=== PATIENT | male | born 1940 | race Caucasian/White ===

== ENCOUNTER 2017-06-19 16:21 | Inpatient (IN) | payer MEDICARE, OTHER ==
[~2017-06-19] VITALS: Ht 177.8 cm; Wt 64.8 kg
[~2017-06-19 16:21] MED LIST: ACET500T71 PO; ALBU8.5H5 INH; AMLO10TA2 PO; ASPI-496 PO; B12 PO; BUDE10.2 PO; CHOL100014 PO; CLOP75TA PO; CYAN100072 PO; FINA5TAB4 PO; FURO20TA3 PO; ISOS30TA8 PO; KETO15CR2 TD; LANS15CA5 PO; METO25TA91 PO; MULT-516 PO; NITR0.4T28 SL; OFLO5DRO7 EACHEYE; SIMV40TA3 PO; TIOT18CA INH; TRAM50TA2 PO; UREA198C TD; [UNRECOGNIZED DRUG - CODE] EACHEYE
[2017-06-19] MEDS ORDERED: ONDANSETRON 2MG/ML, 2ML ONE ×2 (16:51→21:17)
[2017-06-19] MEDS ORDERED: FAMOTIDINE 20 MG/2 ML ONE (16:51)
[2017-06-19] MEDS ORDERED: SODIUM CHLORIDE FLUSH 10ML SYR IVF ONE (17:00)
[2017-06-19] MEDS ORDERED: FAMOTIDINE 20 MG/2 ML IVP ONE (17:00)
[2017-06-19] MEDS ORDERED: SODIUM CHLORIDE 0.9% 1,000ML IVBOLUS ONE (17:00)
[2017-06-19] MEDS ORDERED: ONDANSETRON 2MG/ML, 2ML IVPush ONE (17:00)
[2017-06-19 17:03] LABS: HEMATOCRIT 44.2 % (39.2-51.8); HEMOGLOBIN 14.5 g/dL (13.7-18.0); WHITE BLOOD COUNT 10.4 x10^3/uL (3.4-10)
[2017-06-19 17:21] LABS: ASPARTATE AMINO TRANSFERASE 17 U/L (15-37); BLOOD UREA NITROGEN 10 mg/dL (7-18)
[2017-06-19 17:22] LABS: IS PT STATUS REG ER OR PRE ER? YES
[2017-06-19] MEDS ORDERED: GUAI200T3 PO (19:24)
[2017-06-19] MEDS ORDERED: CLOP75TA52 PO (19:24)
[2017-06-19] MEDS ORDERED: ATOR10TA PO (19:24)
[2017-06-19] MEDS ORDERED: BUPR75TA6 PO (19:24)
[2017-06-19] MEDS ORDERED: RANO500T2 PO (19:24)
[2017-06-19] MEDS ORDERED: hydrALAzine 20 MG/ML, 1ML IVPush PRN (21:00)
[2017-06-19] MEDS ORDERED: POLYETHYLENE GLYCOL 17 GM PACKET PO PRN (21:00)
[2017-06-19] MEDS ORDERED: BISACODYL 10 MG SUPP PR PRN (21:00)
[2017-06-19] MEDS: ACETAMINOPHEN 500 MG TABLET PO SCH (21:00)
[2017-06-19] MEDS ORDERED: ONDANSETRON 2MG/ML, 2ML IVPush PRN (21:00)
[2017-06-19] MEDS ORDERED: HEPARIN 5,000 UNITS/ML, 1ML ONE (21:17)
[2017-06-19] MEDS: HEPARIN 5,000 UNITS/ML, 1ML SQ SCH (21:23)
[2017-06-19] MEDS: SODIUM CHLORIDE 0.9% 1,000 ML IV SCH (22:07)
[2017-06-19] MEDS: RANOLAZINE 500 MG TAB.ER.12H PO SCH (22:37)
[2017-06-19] MEDS: ISOSORBIDE MONONITRATE ER 30 MG TABLET PO SCH (22:37)
[2017-06-19] MEDS: ATORVASTATIN 10 MG TABLET PO SCH (22:37)
[2017-06-19 22:58] VITALS: BP 128/88
[2017-06-19] MEDS ORDERED: ALBUTEROL SULFATE 2.5 MG/3 ML NPPB PRN (23:00)
[2017-06-20 02:06] VITALS: BP 127/69
[2017-06-20 05:10] LABS: HEMOGLOBIN 12.5 g/dL (13.7-18.0); WHITE BLOOD COUNT 7.3 x10^3/uL (3.4-10)
[2017-06-20 05:17] LABS: ASPARTATE AMINO TRANSFERASE 12 U/L (15-37); BLOOD UREA NITROGEN 9 mg/dL (7-18)
[2017-06-20] MEDS: HEPARIN 5,000 UNITS/ML, 1ML SQ SCH ×3 (05:38→21:46)
[2017-06-20 06:13] LABS: PATH.CAST-FLAG NOT PRESENT; SPERM-FLAG NOT PRESENT; SRC-FLAG NOT PRESENT; XTAL-FLAG NOT PRESENT; YLC-FLAG NOT PRESENT
[2017-06-20 06:58] VITALS: BP 125/64
[2017-06-20] MEDS: IPRATROPIUM 0.5 MG/2.5 ML INHA NPPB SCH ×2 (07:55→11:00)
[2017-06-20] MEDS: RANOLAZINE 500 MG TAB.ER.12H PO SCH ×2 (08:48→21:46)
[2017-06-20] MEDS: CHOLECALCIFEROL 1,000 UNIT TABLET PO SCH (08:48)
[2017-06-20] MEDS: MULTIVITAMIN 1 TABLET PO SCH (08:48)
[2017-06-20] MEDS: FINASTERIDE 5 MG TABLET PO SCH (08:48)
[2017-06-20] MEDS: SENNA/DOCUSATE TABLET PO SCH (08:48)
[2017-06-20] MEDS: BUPROPION 75 MG TABLET PO SCH (08:48)
[2017-06-20] MEDS: METOPROLOL SUCCINATE 25 MG TAB.ER.24H PO SCH (08:48)
[2017-06-20] MEDS: CLOPIDOGREL 75 MG TABLET PO SCH (08:48)
[2017-06-20] MEDS: ISOSORBIDE MONONITRATE ER 30 MG TABLET PO SCH ×2 (08:49→21:46)
[2017-06-20] MEDS: FUROSEMIDE 20 MG TABLET PO SCH (08:49)
[2017-06-20] MEDS: PANTOPROZOLE 40MG TABLET PO SCH (08:49)
[2017-06-20] MEDS: SODIUM CHLORIDE 0.9% 1,000 ML IV SCH (08:50)
[2017-06-20] MEDS: ACETAMINOPHEN 500 MG TABLET PO SCH ×3 (08:58→19:48)
[2017-06-20] MEDS: FLUTICASONE/VILANTEROL 200-25MCG/INH INH SCH (10:55)
[2017-06-20 15:00] VITALS: BP 132/67
[2017-06-20] MEDS: ALBUTEROL/IPRATROPIUM 2.5MG/0.5MG, 3 ML NPPB SCH ×2 (15:20→20:20)
[2017-06-20] MEDS: POLYETHYLENE GLYCOL 17 GM PACKET PO SCH (19:30)
[2017-06-20 21:38] VITALS: BP 145/63
[2017-06-20] MEDS: ATORVASTATIN 10 MG TABLET PO SCH (21:46)
[2017-06-21 01:08] VITALS: BP 139/66
[2017-06-21] MEDS: HEPARIN 5,000 UNITS/ML, 1ML SQ SCH ×3 (05:23→22:34)
[2017-06-21 06:10] LABS: BLOOD UREA NITROGEN 7 mg/dL (7-18)
[2017-06-21] MEDS: ALBUTEROL/IPRATROPIUM 2.5MG/0.5MG, 3 ML NPPB SCH ×3 (06:43→21:30)
[2017-06-21 07:15] VITALS: BP 135/72
[2017-06-21] MEDS: PANTOPROZOLE 40MG TABLET PO SCH (08:39)
[2017-06-21] MEDS: CHOLECALCIFEROL 1,000 UNIT TABLET PO SCH (08:40)
[2017-06-21] MEDS: METOPROLOL SUCCINATE 25 MG TAB.ER.24H PO SCH (08:40)
[2017-06-21] MEDS: FUROSEMIDE 20 MG TABLET PO SCH (08:41)
[2017-06-21] MEDS: CLOPIDOGREL 75 MG TABLET PO SCH (08:41)
[2017-06-21] MEDS: ISOSORBIDE MONONITRATE ER 30 MG TABLET PO SCH ×2 (08:41→22:35)
[2017-06-21] MEDS: FINASTERIDE 5 MG TABLET PO SCH (08:41)
[2017-06-21] MEDS: ACETAMINOPHEN 500 MG TABLET PO SCH ×3 (08:41→21:00)
[2017-06-21] MEDS: MULTIVITAMIN 1 TABLET PO SCH (08:41)
[2017-06-21] MEDS: SENNA/DOCUSATE TABLET PO SCH (08:41)
[2017-06-21] MEDS: BUPROPION 75 MG TABLET PO SCH (08:41)
[2017-06-21] MEDS: RANOLAZINE 500 MG TAB.ER.12H PO SCH ×2 (08:41→22:34)
[2017-06-21] MEDS: POLYETHYLENE GLYCOL 17 GM PACKET PO SCH (08:42)
[2017-06-21] MEDS: FLUTICASONE/VILANTEROL 200-25MCG/INH INH SCH (08:42)
[2017-06-21 12:34] VITALS: BP 109/66
[2017-06-21 19:46] VITALS: BP 160/65
[2017-06-21] MEDS: ATORVASTATIN 10 MG TABLET PO SCH (22:34)
[2017-06-22 02:00] VITALS: BP 147/56
[2017-06-22] MEDS: HEPARIN 5,000 UNITS/ML, 1ML SQ SCH ×2 (05:38→13:00)
[2017-06-22 07:17] VITALS: BP 142/74
[2017-06-22] MEDS: ALBUTEROL/IPRATROPIUM 2.5MG/0.5MG, 3 ML NPPB SCH (08:14)
[2017-06-22] MEDS: FLUTICASONE/VILANTEROL 200-25MCG/INH INH SCH (08:28)
[2017-06-22] MEDS: BUPROPION 75 MG TABLET PO SCH (08:28)
[2017-06-22] MEDS: MULTIVITAMIN 1 TABLET PO SCH (08:28)
[2017-06-22] MEDS: RANOLAZINE 500 MG TAB.ER.12H PO SCH (08:28)
[2017-06-22] MEDS: CLOPIDOGREL 75 MG TABLET PO SCH (08:28)
[2017-06-22] MEDS: FINASTERIDE 5 MG TABLET PO SCH (08:28)
[2017-06-22] MEDS: POLYETHYLENE GLYCOL 17 GM PACKET PO SCH (08:29)
[2017-06-22] MEDS: PANTOPROZOLE 40MG TABLET PO SCH (08:29)
[2017-06-22] MEDS: ISOSORBIDE MONONITRATE ER 30 MG TABLET PO SCH (08:29)
[2017-06-22] MEDS: METOPROLOL SUCCINATE 25 MG TAB.ER.24H PO SCH (08:29)
[2017-06-22] MEDS: FUROSEMIDE 20 MG TABLET PO SCH (08:29)
[2017-06-22] MEDS: CHOLECALCIFEROL 1,000 UNIT TABLET PO SCH (08:29)
[2017-06-22] MEDS: SENNA/DOCUSATE TABLET PO SCH (08:29)
[2017-06-22] MEDS: ACETAMINOPHEN 500 MG TABLET PO SCH (08:48)
[2017-06-22 12:12] VITALS: BP 118/58
[2017-06-22] MEDS ORDERED: POLY17PO5 PO (12:56)
[2017-06-22] MEDS ORDERED: CEFDINIR 300 MG CAPSULE PO SCH ×2 (13:00→13:08)
[2017-06-22] MEDS ORDERED: CIPR500T87 PO (13:16)
[2017-06-22] MEDS ORDERED: CIPROFLOXACIN 500 MG TABLET PO SCH (21:00)
== END 2017-06-22 14:52 | disposition home or self-care (01) | DRG 690 ==
LOC: ED 19:36 → EDIP 19:42 → ED 20:28 → 4EST 21:49 → DCLOUNGE 06-22 14:09
PROVIDERS: ADMIT Internal Medicine; ATTEND Internal Medicine
DX: N39.0 Urinary tract infection, site not specified (principal); J96.10 Chronic respiratory failure, unspecified whether with hypoxia or hypercapnia; I11.0 Hypertensive heart disease with heart failure; E87.1 Hypo-osmolality and hyponatremia; I50.32 Chronic diastolic (congestive) heart failure; I95.1 Orthostatic hypotension; K59.00 Constipation, unspecified; J44.9 Chronic obstructive pulmonary disease, unspecified; D75.89 Other specified diseases of blood and blood-forming organs; G56.00 Carpal tunnel syndrome, unspecified upper limb; K21.9 Gastro-esophageal reflux disease without esophagitis; I25.10 Atherosclerotic heart disease of native coronary artery without angina pectoris; I71.4 Abdominal aortic aneurysm, without rupture; Z66 Do not resuscitate; I73.9 Peripheral vascular disease, unspecified; M48.00 Spinal stenosis, site unspecified; M85.80 Other specified disorders of bone density and structure, unspecified site; I25.2 Old myocardial infarction; Z80.3 Family history of malignant neoplasm of breast; Z82.49 Family history of ischemic heart disease and other diseases of the circulatory system; Z86.73 Personal history of transient ischemic attack (TIA), and cerebral infarction without residual deficits; Z86.79 Personal history of other diseases of the circulatory system; Z87.891 Personal history of nicotine dependence; Z95.1 Presence of aortocoronary bypass graft; Z81.8 Family history of other mental and behavioral disorders; Z88.6 Allergy status to analgesic agent; Z88.1 Allergy status to other antibiotic agents; Z88.0 Allergy status to penicillin; Z88.8 Allergy status to other drugs, medicaments and biological substances
CPT/HCPCS: 36415; 71010; 74000; 80048; 80053; 81001; 83690; 83735; 83880; 84484; 85025; 85610; 85730; 87086; 87186; 93005; 94640; 96361; 96374; 96375; 96376; J1644; J2405; J7620; J7644; J7030; S0028

== ENCOUNTER 2018-01-08 19:56 | Emergency (ER) | payer MEDICARE, OTHER ==
[~2018-01-08] VITALS: Ht 172.7 cm; Wt 70.0 kg
[~2018-01-08 19:56] MED LIST changes: +ATOR10TA PO; +BUPR75TA6 PO; +CIPR500T87 PO; +CLOP75TA52 PO; +GUAI200T3 PO; +POLY17PO5 PO; +RANO500T2 PO
[2018-01-08 20:38] LABS: BASOPHILS # (AUTO) 0.06 x10^3/uL (0-0.1); BASOPHILS % (AUTO) 1 % (0-1); EOSINOPHILS # (AUTO) 0.39 x10^3/uL (0-0.4); EOSINOPHILS % (AUTO) 5 % (1-7); LYMPHOCYTES # (AUTO) 2.05 x10^3/uL (1-3.4); LYMPHOCYTES % (AUTO) 27 % (22-44); MD NO; MEAN CORPUSCULAR HEMOGLOBIN 29.8 pg (27.5-34.5); MEAN CORPUSCULAR HGB CONC 33.5 g/dL (33.2-36.2); MEAN CORPUSCULAR VOLUME 88.9 fL (81-97); MONOCYTES # (AUTO) 0.52 x10^3/uL (0.2-0.8); MONOCYTES % (AUTO) 7 % (2-9); NEUTROPHILS # (AUTO) 4.53 x10^3/uL (1.8-6.8); NEUTROPHILS % (AUTO) 60 % (42-75); PLATELET COUNT 359 x10^3/uL (130-400); RED BLOOD COUNT 4.82 x10^6/uL (4.38-5.82); RED CELL DISTRIBUTION WIDTH 14.7 % (9.4-14.8)
[2018-01-08 20:47] LABS: ALBUMIN 3.8 g/dL (3.4-5.0); ANION GAP 10 mmol/L (5-15); CALCIUM 8.6 mg/dL (8.5-10.1); CHLORIDE 100 mmol/L (98-107); CREATININE 1.03 mg/dL (0.7-1.3)
[2018-01-08 20:50] LABS: TROPONIN I < 0.015 ng/mL (0.000-0.045)
[2018-01-08 21:35] VITALS: BP 143/67
== END 2018-01-08 22:33 | disposition left against medical advice (07) ==
LOC: ED 22:27
DX: R07.89 Other chest pain (principal); E87.6 Hypokalemia; F10.10 Alcohol abuse, uncomplicated; K21.9 Gastro-esophageal reflux disease without esophagitis; I10 Essential (primary) hypertension; Z86.73 Personal history of transient ischemic attack (TIA), and cerebral infarction without residual deficits; I25.2 Old myocardial infarction; Z79.899 Other long term (current) drug therapy
CPT/HCPCS: 36415; 71045; 80048; 80307; 82040; 84484; 85025; 93005; 99285

== ENCOUNTER 2018-05-23 04:29 | Inpatient (IN) | payer MEDICARE, OTHER ==
[~2018-05-23] VITALS: Ht 172.7 cm; Wt 72.0 kg
[2018-05-23] MEDS ORDERED: CYAN100028 PO (04:55)
[2018-05-23] MEDS ORDERED: ASPI-496 PO (04:55)
[2018-05-23] MEDS ORDERED: ALEN70TA5 PO (04:55)
[2018-05-23] MEDS ORDERED: BUPR150T13 PO (04:55)
[2018-05-23] MEDS ORDERED: LANS30CA PO (04:55)
[2018-05-23] MEDS ORDERED: SODIUM CHLORIDE FLUSH 10ML SYR IVF ONE (05:00)
[2018-05-23 05:03] LABS: BASOPHILS # (AUTO) 0.04 x10^3/uL (0-0.1); BASOPHILS % (AUTO) 0 % (0-1); EOSINOPHILS # (AUTO) 0.24 x10^3/uL (0-0.4); EOSINOPHILS % (AUTO) 3 % (1-7); LYMPHOCYTES # (AUTO) 0.72 x10^3/uL (1-3.4); LYMPHOCYTES % (AUTO) 8 % (22-44); MD NO; MEAN CORPUSCULAR HGB CONC 33.1 g/dL (33.2-36.2); MEAN CORPUSCULAR VOLUME 90.4 fL (81-97); MEAN PLATELET VOLUME 8.1 fL (7.4-10.4); MONOCYTES # (AUTO) 0.54 x10^3/uL (0.2-0.8); MONOCYTES % (AUTO) 6 % (2-9); NEUTROPHILS # (AUTO) 8.14 x10^3/uL (1.8-6.8); NEUTROPHILS % (AUTO) 84 % (42-75); PLATELET COUNT 320 x10^3/uL (130-400); RED CELL DISTRIBUTION WIDTH 15.6 % (9.4-14.8)
[2018-05-23] MEDS ORDERED: RANO500T2 PO (05:03)
[2018-05-23] MEDS ORDERED: METO25TA91 PO (05:03)
[2018-05-23 05:16] LABS: ALBUMIN 2.9 g/dL (3.4-5.0); ANION GAP 12 mmol/L (5-15); CALCIUM 8.3 mg/dL (8.5-10.1); CHLORIDE 109 mmol/L (98-107); CREATININE 0.88 mg/dL (0.7-1.3)
[2018-05-23 05:22] LABS: TROPONIN I 0.674 ng/mL (0.000-0.045)
[2018-05-23] MEDS ORDERED: ASPIRIN 81 MG TABLET CHEW PO ONE (05:30)
[2018-05-23] MEDS ORDERED: LEVOFLOXACIN/PMX 750MG/150ML 150 ML ONE (06:21)
[2018-05-23] MEDS ORDERED: ASPIRIN 81 MG TABLET CHEW ONE (06:22)
[2018-05-23] MEDS ORDERED: LEVOFLOXACIN/PMX 750MG/150ML 150 ML IVPB ONE (06:30)
[2018-05-23] MEDS ORDERED: SODIUM CHLORIDE FLUSH 10ML SYR IVF PRN (07:30)
[2018-05-23 12:05] VITALS: BP 116/70
[2018-05-23 12:35] VITALS: BP 121/70
[2018-05-23] MEDS: IPRATROPIUM 0.5 MG/2.5 ML INHA NPPB SCH ×2 (13:00→19:00)
[2018-05-23] MEDS ORDERED: CLOPIDOGREL 75 MG TABLET PO ONE (14:30)
[2018-05-23] MEDS: SIMETHICONE 125 MG CHEW TAB PO SCH ×3 (15:05→21:25)
[2018-05-23] MEDS: ACETAMINOPHEN 500 MG TABLET PO SCH ×2 (15:05→21:00)
[2018-05-23] MEDS: POLYETHYLENE GLYCOL 17 GM PACKET PO SCH ×2 (15:06→21:27)
[2018-05-23] MEDS: OMEPRAZOLE 20 MG CAPSULE.DR PO SCH (15:06)
[2018-05-23 19:26] VITALS: BP 119/61
[2018-05-23 21:21] VITALS: BP 123/64
[2018-05-23] MEDS: METOPROLOL SUCCINATE 25 MG TAB.ER.24H PO SCH (21:25)
[2018-05-23] MEDS: ISOSORBIDE MONONITRATE ER 30 MG TABLET PO SCH (21:25)
[2018-05-23] MEDS: BUPROPION 75 MG TABLET PO SCH (21:26)
[2018-05-23] MEDS: RANOLAZINE 500 MG TAB.ER.12H PO SCH (21:26)
[2018-05-23] MEDS: ATORVASTATIN 10 MG TABLET PO SCH (21:26)
[2018-05-24] VITALS (10 sets, daily range): BP systolic 89–136; BP diastolic 45–62
[2018-05-24] MEDS: IPRATROPIUM 0.5 MG/2.5 ML INHA NPPB SCH ×4 (01:00→21:14)
[2018-05-24] MEDS: METOPROLOL SUCCINATE 25 MG TAB.ER.24H PO SCH ×2 (07:59→21:58)
[2018-05-24] MEDS: RANOLAZINE 500 MG TAB.ER.12H PO SCH ×2 (07:59→21:57)
[2018-05-24] MEDS: ISOSORBIDE MONONITRATE ER 30 MG TABLET PO SCH ×2 (08:00→22:54)
[2018-05-24] MEDS: SIMETHICONE 125 MG CHEW TAB PO SCH ×4 (08:00→21:58)
[2018-05-24] MEDS: BUPROPION 75 MG TABLET PO SCH ×2 (08:00→21:58)
[2018-05-24] MEDS: OMEPRAZOLE 20 MG CAPSULE.DR PO SCH ×2 (08:00→17:16)
[2018-05-24] MEDS: MULTIVITAMIN 1 TABLET PO SCH (08:00)
[2018-05-24] MEDS: CHOLECALCIFEROL 1,000 UNIT TABLET PO SCH (08:00)
[2018-05-24] MEDS: ACETAMINOPHEN 500 MG TABLET PO SCH ×4 (08:00→22:08)
[2018-05-24] MEDS: POLYETHYLENE GLYCOL 17 GM PACKET PO SCH ×2 (08:01→21:59)
[2018-05-24] MEDS: CYANOCOBALAMIN 1,000 MCG TABLET PO SCH (08:01)
[2018-05-24] MEDS: FINASTERIDE 5 MG TABLET PO SCH (08:01)
[2018-05-24] MEDS ORDERED: POLYETHYLENE GLYCOL 17 GM PACKET PO SCH (09:00)
[2018-05-24] MEDS ORDERED: FLUTICASONE/VILANTEROL 200-25MCG/INH INH PRN (09:00)
[2018-05-24] MEDS: CLOPIDOGREL 75 MG TABLET PO SCH (12:24)
[2018-05-24] MEDS: ATORVASTATIN 10 MG TABLET PO SCH (21:58)
[2018-05-24] MEDS: ALBUTEROL SULFATE 2.5 MG/3 ML NPPB PRN (23:10)
[2018-05-25 02:41] VITALS: BP 105/51
[2018-05-25] MEDS: IPRATROPIUM 0.5 MG/2.5 ML INHA NPPB SCH ×4 (03:16→15:15)
[2018-05-25] MEDS: ALBUTEROL SULFATE 2.5 MG/3 ML NPPB PRN ×2 (05:32→12:40)
[2018-05-25] MEDS: ASPIRIN 81 MG TABLET EC PO SCH (05:51)
[2018-05-25 07:26] VITALS: BP 105/55
[2018-05-25] MEDS: BUPROPION 75 MG TABLET PO SCH ×2 (07:57→21:40)
[2018-05-25] MEDS: SIMETHICONE 125 MG CHEW TAB PO SCH ×4 (07:57→21:48)
[2018-05-25] MEDS: POLYETHYLENE GLYCOL 17 GM PACKET PO SCH ×2 (07:57→21:48)
[2018-05-25] MEDS: METOPROLOL SUCCINATE 25 MG TAB.ER.24H PO SCH ×2 (07:57→21:41)
[2018-05-25] MEDS: MULTIVITAMIN 1 TABLET PO SCH (07:57)
[2018-05-25] MEDS: CYANOCOBALAMIN 1,000 MCG TABLET PO SCH (07:57)
[2018-05-25] MEDS: CHOLECALCIFEROL 1,000 UNIT TABLET PO SCH (07:57)
[2018-05-25] MEDS: OMEPRAZOLE 20 MG CAPSULE.DR PO SCH ×2 (07:57→16:46)
[2018-05-25] MEDS: CLOPIDOGREL 75 MG TABLET PO SCH (07:57)
[2018-05-25] MEDS: RANOLAZINE 500 MG TAB.ER.12H PO SCH ×2 (07:58→21:40)
[2018-05-25] MEDS: FINASTERIDE 5 MG TABLET PO SCH (07:58)
[2018-05-25] MEDS: ISOSORBIDE MONONITRATE ER 30 MG TABLET PO SCH ×2 (07:58→21:43)
[2018-05-25] MEDS ORDERED: ALBUTEROL/IPRATROPIUM 2.5MG/0.5MG, 3 ML ONE ×2 (12:38→20:48)
[2018-05-25 13:23] VITALS: BP 116/62
[2018-05-25] MEDS: ACETAMINOPHEN 500 MG TABLET PO SCH ×2 (16:00→21:40)
[2018-05-25 20:49] VITALS: BP 147/73
[2018-05-25] MEDS: ATORVASTATIN 10 MG TABLET PO SCH (21:41)
[2018-05-26 01:02] VITALS: BP 113/64
[2018-05-26] MEDS: IPRATROPIUM 0.5 MG/2.5 ML INHA NPPB SCH ×2 (03:00→08:40)
[2018-05-26] MEDS: ASPIRIN 81 MG TABLET EC PO SCH (05:48)
[2018-05-26] MEDS: ALBUTEROL SULFATE 2.5 MG/3 ML NPPB PRN (05:51)
[2018-05-26 08:18] VITALS: BP 125/60
[2018-05-26] MEDS: METOPROLOL SUCCINATE 25 MG TAB.ER.24H PO SCH ×2 (08:22→20:30)
[2018-05-26] MEDS: OMEPRAZOLE 20 MG CAPSULE.DR PO SCH ×2 (08:22→15:28)
[2018-05-26] MEDS: CHOLECALCIFEROL 1,000 UNIT TABLET PO SCH (08:22)
[2018-05-26] MEDS: RANOLAZINE 500 MG TAB.ER.12H PO SCH ×2 (08:22→20:30)
[2018-05-26] MEDS: MULTIVITAMIN 1 TABLET PO SCH (08:22)
[2018-05-26] MEDS: CYANOCOBALAMIN 1,000 MCG TABLET PO SCH (08:22)
[2018-05-26] MEDS: SIMETHICONE 125 MG CHEW TAB PO SCH ×4 (08:23→22:47)
[2018-05-26] MEDS: ACETAMINOPHEN 500 MG TABLET PO SCH ×3 (08:23→20:30)
[2018-05-26] MEDS: CLOPIDOGREL 75 MG TABLET PO SCH (08:23)
[2018-05-26] MEDS: FINASTERIDE 5 MG TABLET PO SCH (08:47)
[2018-05-26] MEDS: POLYETHYLENE GLYCOL 17 GM PACKET PO SCH ×2 (08:47→20:30)
[2018-05-26] MEDS: BUPROPION 75 MG TABLET PO SCH ×2 (08:48→20:37)
[2018-05-26] MEDS: ISOSORBIDE MONONITRATE ER 30 MG TABLET PO SCH ×2 (08:49→20:29)
[2018-05-26] MEDS: ALBUTEROL SULFATE 2.5 MG/3 ML NPPB SCH ×4 (14:00→22:54)
[2018-05-26] MEDS ORDERED: GUAIFENESIN 200 MG TABLET ONE (15:34)
[2018-05-26] MEDS: GUAIFENESIN 200 MG TABLET PO SCH ×2 (15:37→20:30)
[2018-05-26] MEDS: FLUTICASONE/VILANTEROL 200-25MCG/INH INH SCH (16:07)
[2018-05-26 18:53] VITALS: BP 119/69
[2018-05-26] MEDS: ATORVASTATIN 10 MG TABLET PO SCH (20:30)
[2018-05-27 01:53] VITALS: BP 146/67
[2018-05-27] MEDS: ASPIRIN 81 MG TABLET EC PO SCH (05:26)
[2018-05-27] MEDS: ALBUTEROL SULFATE 2.5 MG/3 ML NPPB SCH ×5 (06:56→21:58)
[2018-05-27] MEDS: BUPROPION 75 MG TABLET PO SCH ×2 (08:34→21:52)
[2018-05-27] MEDS: ACETAMINOPHEN 500 MG TABLET PO SCH ×3 (08:34→21:52)
[2018-05-27] MEDS: CYANOCOBALAMIN 1,000 MCG TABLET PO SCH (08:35)
[2018-05-27] MEDS: ISOSORBIDE MONONITRATE ER 30 MG TABLET PO SCH ×2 (08:35→21:52)
[2018-05-27] MEDS: SIMETHICONE 125 MG CHEW TAB PO SCH ×4 (08:35→21:52)
[2018-05-27] MEDS: OMEPRAZOLE 20 MG CAPSULE.DR PO SCH ×2 (08:35→15:16)
[2018-05-27] MEDS: POLYETHYLENE GLYCOL 17 GM PACKET PO SCH ×2 (08:36→21:52)
[2018-05-27] MEDS: CLOPIDOGREL 75 MG TABLET PO SCH (08:36)
[2018-05-27] MEDS: FINASTERIDE 5 MG TABLET PO SCH (08:36)
[2018-05-27] MEDS: CHOLECALCIFEROL 1,000 UNIT TABLET PO SCH (08:36)
[2018-05-27] MEDS: METOPROLOL SUCCINATE 25 MG TAB.ER.24H PO SCH ×2 (08:36→21:52)
[2018-05-27] MEDS: MULTIVITAMIN 1 TABLET PO SCH (08:36)
[2018-05-27 08:45] VITALS: BP 135/50
[2018-05-27] MEDS: FLUTICASONE/VILANTEROL 200-25MCG/INH INH SCH (09:41)
[2018-05-27] MEDS: RANOLAZINE 500 MG TAB.ER.12H PO SCH ×2 (09:41→21:52)
[2018-05-27 10:07] LABS: BASOPHILS # (AUTO) 0.02 x10^3/uL (0-0.1); BASOPHILS % (AUTO) 0 % (0-1); EOSINOPHILS # (AUTO) 0.19 x10^3/uL (0-0.4); EOSINOPHILS % (AUTO) 3 % (1-7); LYMPHOCYTES # (AUTO) 0.55 x10^3/uL (1-3.4); LYMPHOCYTES % (AUTO) 8 % (22-44); MD NO; MEAN CORPUSCULAR HEMOGLOBIN 30.3 pg (27.5-34.5); MEAN CORPUSCULAR HGB CONC 33.4 g/dL (33.2-36.2); MEAN CORPUSCULAR VOLUME 90.9 fL (81-97); MEAN PLATELET VOLUME 8.2 fL (7.4-10.4); MONOCYTES # (AUTO) 0.57 x10^3/uL (0.2-0.8); MONOCYTES % (AUTO) 8 % (2-9); NEUTROPHILS # (AUTO) 5.82 x10^3/uL (1.8-6.8); NEUTROPHILS % (AUTO) 81 % (42-75); PLATELET COUNT 401 x10^3/uL (130-400); RED BLOOD COUNT 3.17 x10^6/uL (4.38-5.82); RED CELL DISTRIBUTION WIDTH 15.2 % (9.4-14.8)
[2018-05-27 12:53] VITALS: BP 123/55
[2018-05-27 17:24] LABS: % IRON SATURATION 8 % (20-55); IRON LEVEL 19 mcg/dL (65-175); TOTAL IRON BINDING CAPACITY 246 mcg/dL (250-450)
[2018-05-27 20:29] VITALS: BP 115/67
[2018-05-27] MEDS: GUAIFENESIN 200 MG TABLET PO SCH (21:52)
[2018-05-27] MEDS: ATORVASTATIN 10 MG TABLET PO SCH (21:52)
[2018-05-28 02:05] VITALS: BP 106/62
[2018-05-28] MEDS: ASPIRIN 81 MG TABLET EC PO SCH (05:42)
[2018-05-28] MEDS: ALBUTEROL SULFATE 2.5 MG/3 ML NPPB SCH ×3 (06:45→14:00)
[2018-05-28 07:35] VITALS: BP 121/64
[2018-05-28] MEDS: OMEPRAZOLE 20 MG CAPSULE.DR PO SCH (09:11)
[2018-05-28] MEDS: FINASTERIDE 5 MG TABLET PO SCH (09:11)
[2018-05-28] MEDS: GUAIFENESIN 200 MG TABLET PO SCH (09:11)
[2018-05-28] MEDS: CYANOCOBALAMIN 1,000 MCG TABLET PO SCH (09:11)
[2018-05-28] MEDS: SIMETHICONE 125 MG CHEW TAB PO SCH ×2 (09:11→13:27)
[2018-05-28] MEDS: MULTIVITAMIN 1 TABLET PO SCH (09:11)
[2018-05-28] MEDS: RANOLAZINE 500 MG TAB.ER.12H PO SCH (09:11)
[2018-05-28] MEDS: BUPROPION 75 MG TABLET PO SCH (09:12)
[2018-05-28] MEDS: METOPROLOL SUCCINATE 25 MG TAB.ER.24H PO SCH (09:12)
[2018-05-28] MEDS: ACETAMINOPHEN 500 MG TABLET PO SCH (09:12)
[2018-05-28] MEDS: CLOPIDOGREL 75 MG TABLET PO SCH (09:12)
[2018-05-28] MEDS: ISOSORBIDE MONONITRATE ER 30 MG TABLET PO SCH (09:12)
[2018-05-28] MEDS: CHOLECALCIFEROL 1,000 UNIT TABLET PO SCH (09:12)
[2018-05-28] MEDS: POLYETHYLENE GLYCOL 17 GM PACKET PO SCH (09:12)
[2018-05-28] MEDS: FLUTICASONE/VILANTEROL 200-25MCG/INH INH SCH (09:19)
[2018-05-28] MEDS ORDERED: FLUT1BLS INH (13:24)
[2018-05-28 13:43] VITALS: BP 130/61
== END 2018-05-28 15:07 | DRG 281 ==
LOC: ED 07:17 → EDIP 07:18 → ED 07:28 → 5SO 09:10
PROVIDERS: ADMIT Hospitalist; ATTEND Hospitalist
PROC: 30233N1 Transfusion of Nonautologous Red Blood Cells into Peripheral Vein, Percutaneous Approach (ICD-10-PCS; principal; 2018-05-24)
DX: I21.4 Non-ST elevation (NSTEMI) myocardial infarction (principal); J96.11 Chronic respiratory failure with hypoxia; I50.30 Unspecified diastolic (congestive) heart failure; D62 Acute posthemorrhagic anemia; D50.9 Iron deficiency anemia, unspecified; I25.2 Old myocardial infarction; I25.10 Atherosclerotic heart disease of native coronary artery without angina pectoris; I11.0 Hypertensive heart disease with heart failure; K21.9 Gastro-esophageal reflux disease without esophagitis; I73.9 Peripheral vascular disease, unspecified; I48.0 Paroxysmal atrial fibrillation; Z66 Do not resuscitate; D63.8 Anemia in other chronic diseases classified elsewhere; F17.210 Nicotine dependence, cigarettes, uncomplicated; Z79.02 Long term (current) use of antithrombotics/antiplatelets; Z82.49 Family history of ischemic heart disease and other diseases of the circulatory system; Z86.73 Personal history of transient ischemic attack (TIA), and cerebral infarction without residual deficits; Z88.0 Allergy status to penicillin; Z88.1 Allergy status to other antibiotic agents; Z88.8 Allergy status to other drugs, medicaments and biological substances; Z95.1 Presence of aortocoronary bypass graft; Z79.899 Other long term (current) drug therapy; Z79.1 Long term (current) use of non-steroidal anti-inflammatories (NSAID); Z79.2 Long term (current) use of antibiotics; Z88.6 Allergy status to analgesic agent
CPT/HCPCS: 36415; 99285; J7613; J7644; 71045; 71046; 80048; 82040; 83540; 83550; 83605; 83735; 83880; 84484; 85014; 85018; 85025; 86850; 86900; 86923; 87040; 93005; 93306; 94640; 96365; J1956; P9016

== ENCOUNTER 2018-11-02 02:47 | Inpatient (IN) | payer OTHER ==
[~2018-11-02] VITALS: Ht 172.7 cm; Wt 69.1 kg
[~2018-11-02 02:47] MED LIST changes: +ALEN70TA6 PO; -AMLO10TA2 PO; +AMLO10TA8 PO; +BUPR150T13 PO; +CYAN100028 PO; +FLUT1BLS INH; +LANS30CA PO
[2018-11-02] MEDS ORDERED: ALBUTEROL/IPRATROPIUM 2.5MG/0.5MG, 3 ML ONE (02:50)
[2018-11-02] MEDS ORDERED: ALBUTEROL SULFATE 2.5 MG/3 ML NPPB SCH (03:00)
[2018-11-02] MEDS ORDERED: methylPREDNISolone SOD SUCC 125 MG/2 ML IVP ONE (03:00)
[2018-11-02] MEDS ORDERED: IPRATROPIUM 0.5 MG/2.5 ML INHA NPPB SCH (03:00)
[2018-11-02] MEDS ORDERED: ALEN70TA6 PO (03:09)
[2018-11-02] MEDS ORDERED: FERR324T5 PO (03:09)
--- NOTE | 2018-11-02 03:13 | NUR ---
PT RESTING IN BED IN HOSPITAL GOWN. CXR DONE, LABS DRAWN. PT ON ALL MONITORS. PT SITTING IN FOWLERS POSITION. BREATHING TX DONE. PT GIVEN WARM BLANKET. CALL LGIHT WITHIN REACH. BILAT BEDRAILS UP. WILL CONTINUE TO MONITOR.
[2018-11-02 03:18] LABS: BASOPHILS # (AUTO) 0.08 x10^3/uL (0-0.1); BASOPHILS % (AUTO) 1 % (0-1); EOSINOPHILS # (AUTO) 0.22 x10^3/uL (0-0.4); EOSINOPHILS % (AUTO) 2 % (1-7); LYMPHOCYTES # (AUTO) 0.62 x10^3/uL (1-3.4); LYMPHOCYTES % (AUTO) 4 % (22-44); MD NO; MEAN CORPUSCULAR HEMOGLOBIN 30.2 pg (27.5-34.5); MEAN CORPUSCULAR VOLUME 88.8 fL (81-97); MEAN PLATELET VOLUME 8.6 fL (7.4-10.4); MONOCYTES # (AUTO) 0.92 x10^3/uL (0.2-0.8); MONOCYTES % (AUTO) 7 % (2-9); NEUTROPHILS # (AUTO) 12.08 x10^3/uL (1.8-6.8); NEUTROPHILS % (AUTO) 87 % (42-75); PLATELET COUNT 323 x10^3/uL (130-400); RED BLOOD COUNT 4.52 x10^6/uL (4.38-5.82); RED CELL DISTRIBUTION WIDTH 15.6 % (9.4-14.8)
[2018-11-02 03:28] LABS: ALANINE AMINOTRANSFERASE 19 U/L (12-78); ALBUMIN 3.4 g/dL (3.4-5.0); ANION GAP 9 mmol/L (5-15); CALCIUM 8.7 mg/dL (8.5-10.1); CHLORIDE 100 mmol/L (98-107); CREATININE 1.78 mg/dL (0.7-1.3)
[2018-11-02 03:32] LABS: ALKALINE PHOSPHATASE 98 U/L (45-117); BILIRUBIN,TOTAL 0.7 mg/dL (0.2-1.0); TOTAL PROTEIN 6.8 g/dL (6.4-8.2); TROPONIN I 0.052 ng/mL (0.000-0.045)
[2018-11-02] MEDS ORDERED: methylPREDNISolone SOD SUCC 125 MG/2 ML ONE (03:32)
[2018-11-02] MEDS ORDERED: ASPIRIN 81 MG TABLET CHEW PO STA (03:45)
[2018-11-02] MEDS ORDERED: ASPIRIN 325 MG TABLET PO STA (03:45)
[2018-11-02] MEDS ORDERED: ASPIRIN 81 MG TABLET CHEW ONE (03:47)
[2018-11-02] MEDS ORDERED: ERTAPENEM 1 GM IM ONE (04:00)
[2018-11-02] MEDS ORDERED: ENALAPRILAT 1.25 MG/ML, 2ML IV PRN (04:30)
[2018-11-02] MEDS ORDERED: ENOXAPARIN 40 MG/0.4 ML SQ SCH (04:30)
[2018-11-02] MEDS ORDERED: morphine SULFATE 10 MG/ML, 1ML IVPush PRN (04:30)
[2018-11-02] MEDS ORDERED: LABETALOL 5MG/ML, 20ML IVPush PRN (04:30)
[2018-11-02] MEDS ORDERED: hydrALAzine 20 MG/ML, 1ML IV PRN (04:30)
[2018-11-02] MEDS ORDERED: ONDANSETRON 2MG/ML, 2ML IVPush PRN (04:30)
[2018-11-02] MEDS ORDERED: DOCUSATE 100 MG CAPSULE PO PRN (04:30)
[2018-11-02] MEDS ORDERED: POLYETHYLENE GLYCOL 17 GM PACKET PO PRN (04:30)
[2018-11-02] MEDS ORDERED: ERTAPENEM 1 GM in SODIUM CHLORIDE 0.9% 50 ML IV ONE (04:30)
[2018-11-02] MEDS ORDERED: HYDROcodone/APAP 5/325 TABLET PO PRN (04:30)
[2018-11-02] MEDS ORDERED: ACETAMINOPHEN 325 MG TABLET PO PRN (04:30)
[2018-11-02] MEDS ORDERED: SODIUM CHLORIDE 0.9% 1,000 ML IV SCH (04:30)
--- NOTE | 2018-11-02 04:45 | NUR ---
report to Stacey DAVIS.
--- NOTE | 2018-11-02 04:54 | NUR ---
BLOOD CULTURES HAVE BEEN DRAWN. ORDERED ABX ADMIN
[2018-11-02 05:04] VITALS: BP 168/76
[2018-11-02] MEDS ORDERED: ALBUTEROL SULFATE 2.5 MG/3 ML NPPB PRN (05:30)
[2018-11-02] MEDS: NICOTINE 7 MG/24 HR PATCH.TD24 TD SCH (05:35)
[2018-11-02] MEDS: ASPIRIN 81 MG TABLET EC PO SCH (06:00)
[2018-11-02] MEDS: GUAIFENESIN/COD200MG-20MG/10ML LIQUID PO PRN (06:44)
[2018-11-02] MEDS: IPRATROPIUM 0.5 MG/2.5 ML INHA NPPB SCH ×2 (07:00→11:00)
[2018-11-02 07:45] VITALS: BP 160/60
[2018-11-02] MEDS: METOPROLOL SUCCINATE 25 MG TAB.ER.24H PO SCH ×2 (08:57→21:58)
[2018-11-02] MEDS: FERROUS SULFATE 325 MG TABLET PO SCH ×2 (08:58→17:31)
[2018-11-02] MEDS: BUPROPION SR 150 MG TABLET PO SCH ×2 (08:58→21:58)
[2018-11-02] MEDS: FINASTERIDE 5 MG TABLET PO SCH (08:58)
[2018-11-02] MEDS: ISOSORBIDE MONONITRATE ER 30 MG TABLET PO SCH ×2 (08:58→21:55)
[2018-11-02] MEDS: ACETAMINOPHEN 500 MG TABLET PO SCH ×3 (08:59→21:58)
[2018-11-02] MEDS: FUROSEMIDE 20 MG TABLET PO SCH (08:59)
[2018-11-02] MEDS: MULTIVITAMIN 1 TABLET PO SCH (08:59)
[2018-11-02] MEDS: CLOPIDOGREL 75 MG TABLET PO SCH (08:59)
[2018-11-02] MEDS: FAMOTIDINE 20 MG TABLET PO SCH ×2 (08:59→21:58)
[2018-11-02] MEDS: BUDESONIDE 0.5 MG/2 ML INHA NPPB SCH ×2 (09:00→20:40)
[2018-11-02] MEDS ORDERED: FLUTICASONE/VILANTEROL 200-25MCG/INH INH SCH (09:00)
[2018-11-02] MEDS: SODIUM CHLORIDE FLUSH 10ML SYR IVF SCH ×2 (09:01→21:54)
[2018-11-02] MEDS: POLYETHYLENE GLYCOL 17 GM PACKET PO SCH (09:01)
[2018-11-02 12:33] LABS: AMPHETAMINE SCREEN, URINE Negative (Negative); BARBITURATE SCREEN, URINE Negative (Negative); BENZODIAZEPINE SCREEN, URINE Negative (Negative); CANNABINOID SCREEN, URINE Negative (Negative); COCAINE SCREEN, URINE Negative (Negative); METHADONE SCREEN, URINE Negative (Negative); OPIATE SCREEN, URINE Positive (Negative)
[2018-11-02 15:26] VITALS: BP 148/62
[2018-11-02 19:26] VITALS: BP 159/66
[2018-11-02] MEDS: ALBUTEROL/IPRATROPIUM 2.5MG/0.5MG, 3 ML NPPB SCH (20:40)
[2018-11-02 21:50] VITALS: BP 158/63
[2018-11-02] MEDS: ATORVASTATIN 10 MG TABLET PO SCH (21:54)
[2018-11-03 00:39] VITALS: BP 146/56
[2018-11-03] MEDS ORDERED: ENOXAPARIN 30 MG/0.3 ML SQ SCH (04:30)
[2018-11-03] MEDS ORDERED: ERTAPENEM 1 GM in SODIUM CHLORIDE 0.9% 50 ML IV SCH (05:00)
[2018-11-03 05:06] LABS: ANION GAP 7 mmol/L (5-15); CALCIUM 8.4 mg/dL (8.5-10.1); CHLORIDE 105 mmol/L (98-107); CREATININE 1.59 mg/dL (0.7-1.3)
[2018-11-03 05:11] LABS: BASOPHILS # (AUTO) 0.02 x10^3/uL (0-0.1); BASOPHILS % (AUTO) 0 % (0-1); EOSINOPHILS # (AUTO) 0.07 x10^3/uL (0-0.4); EOSINOPHILS % (AUTO) 1 % (1-7); LYMPHOCYTES # (AUTO) 1.01 x10^3/uL (1-3.4); LYMPHOCYTES % (AUTO) 10 % (22-44); MD NO; MEAN CORPUSCULAR HEMOGLOBIN 30.7 pg (27.5-34.5); MEAN CORPUSCULAR HGB CONC 33.9 g/dL (33.2-36.2); MEAN CORPUSCULAR VOLUME 90.7 fL (81-97); MEAN PLATELET VOLUME 8.9 fL (7.4-10.4); MONOCYTES # (AUTO) 0.95 x10^3/uL (0.2-0.8); MONOCYTES % (AUTO) 10 % (2-9); NEUTROPHILS # (AUTO) 7.82 x10^3/uL (1.8-6.8); NEUTROPHILS % (AUTO) 79 % (42-75); PLATELET COUNT 300 x10^3/uL (130-400); RED BLOOD COUNT 3.66 x10^6/uL (4.38-5.82); RED CELL DISTRIBUTION WIDTH 15.2 % (9.4-14.8)
[2018-11-03 06:32] VITALS: BP 161/71
[2018-11-03] MEDS: ASPIRIN 81 MG TABLET EC PO SCH (06:38)
[2018-11-03] MEDS: NICOTINE 7 MG/24 HR PATCH.TD24 TD SCH (06:38)
[2018-11-03] MEDS: ALBUTEROL/IPRATROPIUM 2.5MG/0.5MG, 3 ML NPPB SCH ×4 (07:05→19:57)
[2018-11-03] MEDS: BUDESONIDE 0.5 MG/2 ML INHA NPPB SCH ×2 (07:05→19:50)
[2018-11-03] MEDS: FERROUS SULFATE 325 MG TABLET PO SCH ×2 (08:00→16:44)
[2018-11-03] MEDS: SODIUM CHLORIDE FLUSH 10ML SYR IVF SCH ×2 (09:00→21:15)
[2018-11-03] MEDS: FINASTERIDE 5 MG TABLET PO SCH (09:11)
[2018-11-03] MEDS: FAMOTIDINE 20 MG TABLET PO SCH (09:11)
[2018-11-03] MEDS: CLOPIDOGREL 75 MG TABLET PO SCH (09:11)
[2018-11-03] MEDS: ACETAMINOPHEN 500 MG TABLET PO SCH ×3 (09:11→21:13)
[2018-11-03] MEDS: BUPROPION SR 150 MG TABLET PO SCH ×2 (09:11→21:13)
[2018-11-03] MEDS: METOPROLOL SUCCINATE 25 MG TAB.ER.24H PO SCH ×2 (09:11→21:14)
[2018-11-03] MEDS: FUROSEMIDE 20 MG TABLET PO SCH (09:11)
[2018-11-03] MEDS: POLYETHYLENE GLYCOL 17 GM PACKET PO SCH (09:13)
[2018-11-03] MEDS: MULTIVITAMIN 1 TABLET PO SCH (09:13)
[2018-11-03] MEDS: ISOSORBIDE MONONITRATE ER 30 MG TABLET PO SCH ×2 (09:27→21:14)
[2018-11-03] MEDS ORDERED: LACTULOSE 20 GM/30 ML UDC PO PRN (09:30)
[2018-11-03 13:23] VITALS: BP 151/60
[2018-11-03 18:57] VITALS: BP 160/72
[2018-11-03] MEDS ORDERED: CALCIUM CARBONATE 500 MG TAB.CHEW PO PRN (19:30)
[2018-11-03 21:10] VITALS: BP 163/76
[2018-11-03] MEDS: ATORVASTATIN 10 MG TABLET PO SCH (21:14)
[2018-11-04 00:36] VITALS: BP 153/63
[2018-11-04] MEDS: ASPIRIN 81 MG TABLET EC PO SCH (04:16)
[2018-11-04] MEDS: GUAIFENESIN/COD200MG-20MG/10ML LIQUID PO PRN (04:17)
[2018-11-04] MEDS: NICOTINE 7 MG/24 HR PATCH.TD24 TD SCH (04:20)
[2018-11-04 06:38] VITALS: BP 158/69
[2018-11-04] MEDS: ALBUTEROL/IPRATROPIUM 2.5MG/0.5MG, 3 ML NPPB SCH ×3 (07:39→14:24)
[2018-11-04] MEDS: BUDESONIDE 0.5 MG/2 ML INHA NPPB SCH (07:39)
[2018-11-04] MEDS: MULTIVITAMIN 1 TABLET PO SCH (08:20)
[2018-11-04] MEDS: FERROUS SULFATE 325 MG TABLET PO SCH ×2 (08:20→16:17)
[2018-11-04] MEDS: METOPROLOL SUCCINATE 25 MG TAB.ER.24H PO SCH (08:20)
[2018-11-04] MEDS: ACETAMINOPHEN 500 MG TABLET PO SCH ×2 (08:21→16:17)
[2018-11-04] MEDS: FINASTERIDE 5 MG TABLET PO SCH (08:21)
[2018-11-04] MEDS: FUROSEMIDE 20 MG TABLET PO SCH (08:21)
[2018-11-04] MEDS: BUPROPION SR 150 MG TABLET PO SCH (08:21)
[2018-11-04] MEDS: CLOPIDOGREL 75 MG TABLET PO SCH (08:21)
[2018-11-04] MEDS: ISOSORBIDE MONONITRATE ER 30 MG TABLET PO SCH (08:21)
[2018-11-04] MEDS: SODIUM CHLORIDE FLUSH 10ML SYR IVF SCH (08:22)
[2018-11-04] MEDS: POLYETHYLENE GLYCOL 17 GM PACKET PO SCH (08:23)
[2018-11-04] MEDS ORDERED: FAMOTIDINE 20 MG TABLET PO SCH (09:00)
[2018-11-04] MEDS ORDERED: ALBU90AE INH (11:11)
[2018-11-04] MEDS ORDERED: METH4TAB2 PO ×2 (11:14)
[2018-11-04] MEDS ORDERED: LEVO750T26 PO ×2 (11:14)
[2018-11-04 13:01] VITALS: BP 154/55
[2018-11-20] MEDS ORDERED: CARB1DRO16 EACHEYE (19:13)
[2018-11-25] MEDS ORDERED: PRED10TA PO ×2 (11:42)
[2018-11-25] MEDS ORDERED: LISI-167 PO (11:42)
[2018-11-25] MEDS ORDERED: POTA10CA PO (11:42)
[2018-11-25] MEDS ORDERED: FURO20TA3 PO (11:42)
[2018-11-25] MEDS ORDERED: BUPR150T13 PO (11:42)
[2018-11-25] MEDS ORDERED: ATOR10TA PO (11:42)
== END 2018-11-04 17:25 | disposition home or self-care (01) | DRG 682 ==
LOC: ED 03:20 → EDIP 04:07 → 4NOR 04:58
PROVIDERS: ADMIT Family Medicine; ATTEND Family Medicine
DX: N17.0 Acute kidney failure with tubular necrosis (principal); J18.1 Lobar pneumonia, unspecified organism; J96.21 Acute and chronic respiratory failure with hypoxia; I50.32 Chronic diastolic (congestive) heart failure; J44.0 Chronic obstructive pulmonary disease with (acute) lower respiratory infection; J44.1 Chronic obstructive pulmonary disease with (acute) exacerbation; F17.210 Nicotine dependence, cigarettes, uncomplicated; I11.0 Hypertensive heart disease with heart failure; I25.10 Atherosclerotic heart disease of native coronary artery without angina pectoris; K59.00 Constipation, unspecified; G56.00 Carpal tunnel syndrome, unspecified upper limb; K21.9 Gastro-esophageal reflux disease without esophagitis; Z82.49 Family history of ischemic heart disease and other diseases of the circulatory system; Z86.73 Personal history of transient ischemic attack (TIA), and cerebral infarction without residual deficits; I25.2 Old myocardial infarction; Z99.81 Dependence on supplemental oxygen; Z95.1 Presence of aortocoronary bypass graft; Z88.0 Allergy status to penicillin; Z88.8 Allergy status to other drugs, medicaments and biological substances
CPT/HCPCS: 36415; 74018; 99285; J7620; J7626; 71045; 80048; 80053; 80307; 83880; 84484; 85025; 87040; 93005; 94640; 96374; G0378; J1335; J1650; J2930; J7030

== ENCOUNTER 2018-12-02 07:26 | Inpatient (IN) | payer MEDICARE ==
[~2018-12-02] VITALS: Ht 172.7 cm; Wt 66.8 kg
[~2018-12-02 07:26] MED LIST changes: +ALBU90AE INH; +CARB1DRO16 EACHEYE; +FERR324T5 PO; +LEVO750T26 PO; +LISI-167 PO; +METH4TAB2 PO; +POTA10CA PO; +PRED10TA PO
[2018-12-02] MEDS ORDERED: MAGNESIUM SULFATE PMX 2GM/50ML 50 ML IVPB ONE (08:00)
[2018-12-02] MEDS ORDERED: SODIUM CHLORIDE FLUSH 10ML SYR IVF ONE (08:00)
[2018-12-02] MEDS ORDERED: methylPREDNISolone SOD SUCC 125 MG/2 ML IVP ONE (08:00)
--- NOTE | 2018-12-02 08:00 | NUR ---
Patient brought in by EMS for increasing shortness of breath x10 days, becoming increasingly worse since discharge from this facility. Patient states he has also had intermittent urinary retention, feels he cannot empty his bladder. Patient is alert and oriented with labored breathing. IV started by EMS prior to arrival, albuterol x1 and duoneb x2 administered prior to arrival.
--- NOTE | 2018-12-02 08:19 | NUR ---
Patient resting in gurney, call ledbetter within reach. Continuous blood pressure, SPO2 and cardiac monitoring in place. Plan of care discussed with patient, verbalizes understanding. Patient reports improvement in shortness of breath, oxygen weaned to 7 LPM via simple mask.
[2018-12-02 08:29] LABS: BASOPHILS # (AUTO) 0.03 x10^3/uL (0-0.1); BASOPHILS % (AUTO) 0 % (0-1); EOSINOPHILS % (AUTO) 1 % (1-7); LYMPHOCYTES # (AUTO) 0.47 x10^3/uL (1-3.4); LYMPHOCYTES % (AUTO) 6 % (22-44); MD NO; MEAN CORPUSCULAR HEMOGLOBIN 28.1 pg (27.5-34.5); MEAN CORPUSCULAR HGB CONC 31.5 g/dL (33.2-36.2); MEAN CORPUSCULAR VOLUME 89.3 fL (81-97); MEAN PLATELET VOLUME 8.8 fL (7.4-10.4); MONOCYTES # (AUTO) 0.57 x10^3/uL (0.2-0.8); MONOCYTES % (AUTO) 8 % (2-9); NEUTROPHILS # (AUTO) 6.24 x10^3/uL (1.8-6.8); NEUTROPHILS % (AUTO) 84 % (42-75); PLATELET COUNT 193 x10^3/uL (130-400); RED CELL DISTRIBUTION WIDTH 15.9 % (9.4-14.8)
[2018-12-02 08:32] LABS: ALANINE AMINOTRANSFERASE 34 U/L (12-78); ALBUMIN 3.2 g/dL (3.4-5.0); ANION GAP 7 mmol/L (5-15); CALCIUM 7.8 mg/dL (8.5-10.1); CHLORIDE 103 mmol/L (98-107); CREATININE 1.41 mg/dL (0.7-1.3)
[2018-12-02 08:36] LABS: ALKALINE PHOSPHATASE 73 U/L (45-117); TOTAL PROTEIN 6.1 g/dL (6.4-8.2); TROPONIN I 0.033 ng/mL (0.000-0.045)
[2018-12-02 08:38] LABS: BILIRUBIN,TOTAL 0.5 mg/dL (0.2-1.0)
[2018-12-02] MEDS ORDERED: FUROSEMIDE 40 MG/4 ML ONE (08:54)
[2018-12-02] MEDS ORDERED: methylPREDNISolone SOD SUCC 125 MG/2 ML ONE (08:54)
[2018-12-02] MEDS ORDERED: MAGNESIUM SULFATE PMX 2GM/50ML 50 ML ONE (08:54)
[2018-12-02] MEDS ORDERED: FUROSEMIDE 40 MG/4 ML IV ONE (09:00)
[2018-12-02] MEDS ORDERED: DOCUSATE 100 MG CAPSULE PO PRN (09:00)
[2018-12-02] MEDS ORDERED: SODIUM CHLORIDE FLUSH 10ML SYR IVF PRN (09:00)
[2018-12-02] MEDS ORDERED: TEMPLATE NON-FORMULARY MED. (Albuterol Sulfate (Proair Respiclick) 2 PUFF(S)) INH PRN (09:30)
[2018-12-02] MEDS ORDERED: LABETALOL 5MG/ML, 20ML IVPush PRN (09:30)
[2018-12-02] MEDS ORDERED: ACETAMINOPHEN 325 MG TABLET PO PRN (09:30)
[2018-12-02] MEDS ORDERED: TEMPLATE NON-FORMULARY MED. (Albuterol Sulfate** (Albuterol Sulfate Hfa**) 2 PUFF(S)) INH PRN (09:30)
[2018-12-02] MEDS ORDERED: BISACODYL 10 MG SUPP PR PRN (09:30)
[2018-12-02] MEDS ORDERED: POLYETHYLENE GLYCOL 17 GM PACKET PO PRN (09:30)
[2018-12-02] MEDS ORDERED: TEMPLATE NON-FORMULARY MED. (Budesonide/Formoterol Fumarate (Symbicort 160-4.5 Mcg Inhaler PO PRN (09:30)
[2018-12-02] MEDS ORDERED: ONDANSETRON 2MG/ML, 2ML IVPush PRN (09:30)
[2018-12-02] MEDS: methylPREDNISolone SOD SUCC 125 MG/2 ML IVPush SCH ×3 (09:30→23:35)
[2018-12-02 10:47] VITALS: BP 166/92
[2018-12-02] MEDS ORDERED: BUPROPION MC SCH (11:30)
[2018-12-02] MEDS ORDERED: ISOSORBIDE MONONITRATE MC SCH (11:30)
[2018-12-02] MEDS ORDERED: ALBUTEROL SULFATE 2.5 MG/3 ML HHN PRN (11:30)
[2018-12-02] MEDS ORDERED: IPRATROPIUM 0.5 MG/2.5 ML INHA HHN SCH (12:00)
[2018-12-02] MEDS ORDERED: ALBUTEROL SULFATE 2.5 MG/3 ML HHN SCH (12:00)
[2018-12-02 12:07] LABS: O2 FLOW 8 L/min
[2018-12-02 12:24] LABS: TROPONIN I 0.032 ng/mL (0.000-0.045)
[2018-12-02 12:49] VITALS: BP 157/64
[2018-12-02] MEDS: ACETAMINOPHEN 500 MG TABLET PO SCH ×2 (14:33→21:17)
[2018-12-02] MEDS: FUROSEMIDE 40 MG/4 ML IV SCH (17:43)
[2018-12-02] MEDS: POTASSIUM CHLORIDE 20 MEQ TAB.ER.PRT PO SCH (17:43)
[2018-12-02 18:45] LABS: TROPONIN I 0.085 ng/mL (0.000-0.045)
[2018-12-02 20:14] VITALS: BP 150/73
[2018-12-02] MEDS ORDERED: BUPROPION HCL 75 MG PO SCH (21:00)
[2018-12-02] MEDS: BUDESONIDE 0.5 MG/2 ML INHA HHN SCH (21:00)
[2018-12-02] MEDS ORDERED: ISOSORBIDE MONONITRATE ER 30 MG TABLET PO SCH (21:00)
[2018-12-02] MEDS: ATORVASTATIN 20 MG TABLET PO SCH (21:17)
[2018-12-02] MEDS: METOPROLOL SUCCINATE 25 MG TAB.ER.24H PO SCH (21:17)
[2018-12-02] MEDS: RANOLAZINE 500 MG TAB.ER.12H PO SCH (21:17)
[2018-12-02] MEDS: BUPROPION SR 150 MG TABLET PO SCH (21:17)
[2018-12-02] MEDS: PANTOPROZOLE 40MG TABLET PO SCH (21:17)
[2018-12-02] MEDS: SODIUM CHLORIDE FLUSH 10ML SYR IVF SCH (21:25)
[2018-12-02] MEDS ORDERED: ALBUTEROL/IPRATROPIUM 2.5MG/0.5MG, 3 ML ONE (23:17)
[2018-12-02] MEDS: GUAIFENESIN/DM 200-20MG, 10ML UDC PO PRN (23:34)
[2018-12-03 01:21] VITALS: BP 158/74
[2018-12-03] MEDS: ALBUTEROL/IPRATROPIUM 2.5MG/0.5MG, 3 ML NPPB SCH ×4 (01:21→20:44)
[2018-12-03 04:46] LABS: BASOPHILS % (AUTO) 0 % (0-1); EOSINOPHILS % (AUTO) 0 % (1-7); LYMPHOCYTES # (AUTO) 0.18 x10^3/uL (1-3.4); LYMPHOCYTES % (AUTO) 3 % (22-44); MD NO; MEAN CORPUSCULAR HEMOGLOBIN 29.2 pg (27.5-34.5); MEAN CORPUSCULAR HGB CONC 32.8 g/dL (33.2-36.2); MEAN CORPUSCULAR VOLUME 89.3 fL (81-97); MEAN PLATELET VOLUME 8.6 fL (7.4-10.4); MONOCYTES # (AUTO) 0.25 x10^3/uL (0.2-0.8); MONOCYTES % (AUTO) 4 % (2-9); NEUTROPHILS % (AUTO) 92 % (42-75); PLATELET COUNT 179 x10^3/uL (130-400); RED BLOOD COUNT 4.01 x10^6/uL (4.38-5.82); RED CELL DISTRIBUTION WIDTH 15.5 % (9.4-14.8)
[2018-12-03 05:01] LABS: ANION GAP 7 mmol/L (5-15); CALCIUM 7.6 mg/dL (8.5-10.1); CHLORIDE 101 mmol/L (98-107)
[2018-12-03 05:08] LABS: CREATININE 1.16 mg/dL (0.7-1.3); TROPONIN I 0.059 ng/mL (0.000-0.045)
[2018-12-03] MEDS: methylPREDNISolone SOD SUCC 125 MG/2 ML IVPush SCH ×4 (05:50→23:35)
[2018-12-03 07:20] VITALS: BP 155/78
[2018-12-03] MEDS: BUDESONIDE 0.5 MG/2 ML INHA HHN SCH ×2 (07:32→20:44)
[2018-12-03] MEDS ORDERED: TEMPLATE NON-FORMULARY MED. (Tiotropium Bromide** (Spiriva**) 18 MCG) INH SCH (09:00)
[2018-12-03] MEDS: SODIUM CHLORIDE FLUSH 10ML SYR IVF SCH ×2 (09:00→21:41)
[2018-12-03] MEDS ORDERED: POLYETHYLENE GLYCOL 17 GM PACKET PO SCH (09:00)
[2018-12-03] MEDS: MULTIVITAMIN 1 TABLET PO SCH (09:17)
[2018-12-03] MEDS: CLOPIDOGREL 75 MG TABLET PO SCH (09:17)
[2018-12-03] MEDS: ASPIRIN 81 MG TABLET EC PO SCH (09:17)
[2018-12-03] MEDS: LISINOPRIL 10 MG TABLET PO SCH (09:17)
[2018-12-03] MEDS: METOPROLOL SUCCINATE 25 MG TAB.ER.24H PO SCH ×2 (09:17→21:40)
[2018-12-03] MEDS: CYANOCOBALAMIN 1,000 MCG TABLET PO SCH (09:17)
[2018-12-03] MEDS: PANTOPROZOLE 40MG TABLET PO SCH ×2 (09:17→21:40)
[2018-12-03] MEDS: POTASSIUM CHLORIDE 20 MEQ TAB.ER.PRT PO SCH ×2 (09:17→15:47)
[2018-12-03] MEDS: BUPROPION SR 150 MG TABLET PO SCH ×2 (09:18→21:40)
[2018-12-03] MEDS: RANOLAZINE 500 MG TAB.ER.12H PO SCH ×2 (09:18→21:41)
[2018-12-03] MEDS: ACETAMINOPHEN 500 MG TABLET PO SCH ×3 (09:18→21:41)
[2018-12-03] MEDS: CHOLECALCIFEROL 1,000 UNIT TABLET PO SCH (09:18)
[2018-12-03] MEDS: ISOSORBIDE MONONITRATE ER 30 MG TABLET PO SCH (09:19)
[2018-12-03] MEDS: FINASTERIDE 5 MG TABLET PO SCH (09:19)
[2018-12-03] MEDS: FUROSEMIDE 40 MG/4 ML IV SCH ×2 (09:19→15:47)
[2018-12-03 13:30] VITALS: BP 148/67
[2018-12-03] MEDS: GUAIFENESIN/DM 200-20MG, 10ML UDC PO PRN (15:47)
[2018-12-03 21:09] VITALS: BP 159/82
[2018-12-03 21:38] VITALS: BP 150/66
[2018-12-03] MEDS: ATORVASTATIN 20 MG TABLET PO SCH (21:41)
[2018-12-04 03:00] VITALS: BP 153/81
[2018-12-04] MEDS: ALBUTEROL/IPRATROPIUM 2.5MG/0.5MG, 3 ML NPPB SCH ×4 (03:10→21:00)
[2018-12-04 05:02] LABS: ANION GAP 6 mmol/L (5-15); CALCIUM 8.1 mg/dL (8.5-10.1); CHLORIDE 99 mmol/L (98-107); CREATININE 1.29 mg/dL (0.7-1.3)
[2018-12-04 05:06] LABS: TROPONIN I 0.044 ng/mL (0.000-0.045)
[2018-12-04] MEDS: methylPREDNISolone SOD SUCC 125 MG/2 ML IVPush SCH ×2 (05:09→11:11)
[2018-12-04] MEDS: BUDESONIDE 0.5 MG/2 ML INHA HHN SCH ×2 (07:33→21:00)
[2018-12-04 07:54] VITALS: BP 152/83
[2018-12-04] MEDS: FUROSEMIDE 40 MG/4 ML IV SCH (08:27)
[2018-12-04] MEDS: BUPROPION SR 150 MG TABLET PO SCH ×2 (08:27→20:47)
[2018-12-04] MEDS: CHOLECALCIFEROL 1,000 UNIT TABLET PO SCH (08:27)
[2018-12-04] MEDS: MULTIVITAMIN 1 TABLET PO SCH (08:27)
[2018-12-04] MEDS: RANOLAZINE 500 MG TAB.ER.12H PO SCH ×2 (08:27→20:46)
[2018-12-04] MEDS: ISOSORBIDE MONONITRATE ER 30 MG TABLET PO SCH (08:27)
[2018-12-04] MEDS: LISINOPRIL 10 MG TABLET PO SCH (08:27)
[2018-12-04] MEDS: FINASTERIDE 5 MG TABLET PO SCH (08:27)
[2018-12-04] MEDS: CLOPIDOGREL 75 MG TABLET PO SCH (08:27)
[2018-12-04] MEDS: PANTOPROZOLE 40MG TABLET PO SCH ×2 (08:28→20:46)
[2018-12-04] MEDS: CYANOCOBALAMIN 1,000 MCG TABLET PO SCH (08:28)
[2018-12-04] MEDS: POTASSIUM CHLORIDE 20 MEQ TAB.ER.PRT PO SCH ×2 (08:28→16:40)
[2018-12-04] MEDS: METOPROLOL SUCCINATE 25 MG TAB.ER.24H PO SCH ×2 (08:28→20:47)
[2018-12-04] MEDS: ASPIRIN 81 MG TABLET EC PO SCH (08:28)
[2018-12-04] MEDS: SODIUM CHLORIDE FLUSH 10ML SYR IVF SCH ×2 (08:29→20:46)
[2018-12-04] MEDS: ACETAMINOPHEN 500 MG TABLET PO SCH ×3 (08:34→20:47)
[2018-12-04 12:49] VITALS: BP 137/74
[2018-12-04] MEDS: FUROSEMIDE 20 MG TABLET PO SCH (16:40)
[2018-12-04 20:00] VITALS: BP 129/75
[2018-12-04 20:39] VITALS: BP 154/78
[2018-12-04] MEDS: ATORVASTATIN 20 MG TABLET PO SCH (20:46)
[2018-12-05 00:53] VITALS: BP 139/67
[2018-12-05] MEDS: ALBUTEROL/IPRATROPIUM 2.5MG/0.5MG, 3 ML NPPB SCH ×5 (03:00→20:51)
[2018-12-05] MEDS: GUAIFENESIN/DM 200-20MG, 10ML UDC PO PRN ×2 (03:20→20:18)
[2018-12-05] MEDS: BUDESONIDE 0.5 MG/2 ML INHA HHN SCH ×2 (08:00→20:51)
[2018-12-05 08:07] VITALS: BP 143/65
[2018-12-05] MEDS ORDERED: REGADENOSON 0.4 MG/5 ML SYRINGE ONE (09:25)
[2018-12-05] MEDS: FUROSEMIDE 20 MG TABLET PO SCH ×2 (12:15→17:09)
[2018-12-05] MEDS: RANOLAZINE 500 MG TAB.ER.12H PO SCH ×2 (12:15→23:27)
[2018-12-05] MEDS: SODIUM CHLORIDE FLUSH 10ML SYR IVF SCH ×2 (12:15→23:27)
[2018-12-05] MEDS: ACETAMINOPHEN 500 MG TABLET PO SCH ×3 (12:15→23:28)
[2018-12-05] MEDS: ASPIRIN 81 MG TABLET EC PO SCH (12:15)
[2018-12-05] MEDS: CYANOCOBALAMIN 1,000 MCG TABLET PO SCH (12:15)
[2018-12-05] MEDS: CLOPIDOGREL 75 MG TABLET PO SCH (12:15)
[2018-12-05] MEDS: POTASSIUM CHLORIDE 20 MEQ TAB.ER.PRT PO SCH ×2 (12:15→17:09)
[2018-12-05] MEDS: BUPROPION SR 150 MG TABLET PO SCH ×2 (12:15→23:28)
[2018-12-05] MEDS: MULTIVITAMIN 1 TABLET PO SCH (12:15)
[2018-12-05] MEDS: FINASTERIDE 5 MG TABLET PO SCH (12:15)
[2018-12-05] MEDS: PANTOPROZOLE 40MG TABLET PO SCH ×2 (12:15→23:27)
[2018-12-05] MEDS: METOPROLOL SUCCINATE 25 MG TAB.ER.24H PO SCH ×2 (12:15→23:28)
[2018-12-05] MEDS: ISOSORBIDE MONONITRATE ER 30 MG TABLET PO SCH (12:15)
[2018-12-05] MEDS: CHOLECALCIFEROL 1,000 UNIT TABLET PO SCH (12:15)
[2018-12-05] MEDS: LISINOPRIL 10 MG TABLET PO SCH (12:15)
[2018-12-05 13:50] VITALS: BP 141/67
[2018-12-05 20:00] VITALS: BP 139/68
[2018-12-05 23:24] VITALS: BP 154/68
[2018-12-05] MEDS: ATORVASTATIN 20 MG TABLET PO SCH (23:27)
[2018-12-06 01:06] VITALS: BP 133/73
[2018-12-06] MEDS: ALBUTEROL/IPRATROPIUM 2.5MG/0.5MG, 3 ML NPPB SCH ×2 (02:46→08:00)
[2018-12-06] MEDS: BUDESONIDE 0.5 MG/2 ML INHA HHN SCH (08:00)
[2018-12-06 08:28] VITALS: BP 155/72
[2018-12-06] MEDS: SODIUM CHLORIDE FLUSH 10ML SYR IVF SCH (09:00)
[2018-12-06] MEDS: CYANOCOBALAMIN 1,000 MCG TABLET PO SCH (09:20)
[2018-12-06] MEDS: CHOLECALCIFEROL 1,000 UNIT TABLET PO SCH (09:20)
[2018-12-06] MEDS: MULTIVITAMIN 1 TABLET PO SCH (09:20)
[2018-12-06] MEDS: LISINOPRIL 10 MG TABLET PO SCH (09:20)
[2018-12-06] MEDS: METOPROLOL SUCCINATE 25 MG TAB.ER.24H PO SCH (09:20)
[2018-12-06] MEDS: POTASSIUM CHLORIDE 20 MEQ TAB.ER.PRT PO SCH (09:21)
[2018-12-06] MEDS: ACETAMINOPHEN 500 MG TABLET PO SCH (09:21)
[2018-12-06] MEDS: ASPIRIN 81 MG TABLET EC PO SCH (09:21)
[2018-12-06] MEDS: FINASTERIDE 5 MG TABLET PO SCH (09:21)
[2018-12-06] MEDS: CLOPIDOGREL 75 MG TABLET PO SCH (09:21)
[2018-12-06] MEDS: ISOSORBIDE MONONITRATE ER 30 MG TABLET PO SCH (09:21)
[2018-12-06] MEDS: BUPROPION SR 150 MG TABLET PO SCH (09:21)
[2018-12-06] MEDS: RANOLAZINE 500 MG TAB.ER.12H PO SCH (09:21)
[2018-12-06] MEDS: FUROSEMIDE 20 MG TABLET PO SCH (09:21)
[2018-12-06] MEDS: PANTOPROZOLE 40MG TABLET PO SCH (09:22)
[2018-12-08] MEDS ORDERED: ALENDRONATE 70 MG TABLET PO SCH (06:30)
== END 2018-12-06 13:05 | disposition home or self-care (01) | DRG 291 ==
LOC: MERGE 07:26 → ED 09:18 → EDIP 09:32 → 5SO 10:41 → DCLOUNGE 12-06 12:43
PROVIDERS: ADMIT Hospitalist; ATTEND Hospitalist
DX: I13.0 Hypertensive heart and chronic kidney disease with heart failure and stage 1 through stage 4 chronic kidney disease, or unspecified chronic kidney disease (principal); I50.43 Acute on chronic combined systolic (congestive) and diastolic (congestive) heart failure; J96.21 Acute and chronic respiratory failure with hypoxia; J44.1 Chronic obstructive pulmonary disease with (acute) exacerbation; Z88.0 Allergy status to penicillin; Z88.8 Allergy status to other drugs, medicaments and biological substances; D64.9 Anemia, unspecified; I25.10 Atherosclerotic heart disease of native coronary artery without angina pectoris; I25.2 Old myocardial infarction; K21.9 Gastro-esophageal reflux disease without esophagitis; N18.3 Chronic kidney disease, stage 3 (moderate); Z66 Do not resuscitate; Z82.49 Family history of ischemic heart disease and other diseases of the circulatory system; Z86.73 Personal history of transient ischemic attack (TIA), and cerebral infarction without residual deficits; Z86.79 Personal history of other diseases of the circulatory system; Z87.891 Personal history of nicotine dependence; Z91.19 Patient's noncompliance with other medical treatment and regimen; Z95.1 Presence of aortocoronary bypass graft; Z99.81 Dependence on supplemental oxygen
CPT/HCPCS: 36415; 36600; 51702; 71045; 78452; 80048; 80053; 82803; 83880; 84484; 85025; 87070; 87205; 93005; 93017; 94640; 96365; 96366; 96375; 99285; G0378; J1940; J2785; J7620; J7626; A9502; C9898; J2930; J3475; J7512

== ENCOUNTER → 2020-02-11 | Outpatient (CLI) | payer MEDICARE, OTHER ==
[~2020-02-11] MED LIST changes: +ACET500T64 PO; -ACET500T71 PO; -GUAI200T3 PO; +GUAI200T37 PO; +KETO15CR17 TD; -KETO15CR2 TD; +REGADENOSON 0.4 MG/5 ML SYRINGE ONE; +SIMV40TA20 PO; -SIMV40TA3 PO
== END | disposition home or self-care (01) ==
LOC: CFH 07:24
PROVIDERS: ATTEND Internal Medicine Cardiovascular Disease
DX: I08.0 Rheumatic disorders of both mitral and aortic valves (principal); I65.23 Occlusion and stenosis of bilateral carotid arteries; I25.10 Atherosclerotic heart disease of native coronary artery without angina pectoris; I10 Essential (primary) hypertension; J44.9 Chronic obstructive pulmonary disease, unspecified; I49.5 Sick sinus syndrome; Z95.1 Presence of aortocoronary bypass graft; Z87.891 Personal history of nicotine dependence
CPT/HCPCS: 78452; 93017; 93306; 93880; A9502; J2785

== ENCOUNTER → 2021-02-24 | Outpatient (CLI) | payer OTHER ==
[~2021-02-24] MED LIST changes: -ALEN70TA6 PO; +ALEN70TA77 PO; +AMLO-211 PO; -AMLO10TA8 PO; -REGADENOSON 0.4 MG/5 ML SYRINGE ONE
== END | disposition home or self-care (01) ==
LOC: CFH 12:59
PROVIDERS: ATTEND Internal Medicine Nephrology
DX: M47.816 Spondylosis without myelopathy or radiculopathy, lumbar region (principal); M51.36 Other intervertebral disc degeneration, lumbar region; M48.061 Spinal stenosis, lumbar region without neurogenic claudication
CPT/HCPCS: 72148